=== PATIENT | male | born 1995 | race Caucasian/White ===

== ENCOUNTER 2022-09-23 13:51 | Emergency (ER) | payer MEDICAID ==
[~2022-09-23] VITALS: Ht 167.6 cm; Wt 70.0 kg
[2022-09-23 13:55] VITALS: BP 121/66
[2022-09-23] MEDS ORDERED: ACET-2708 MT (16:39)
== END 2022-09-23 16:49 | disposition home or self-care (01) ==
LOC: ER 13:51
DX: B34.9 Viral infection, unspecified (principal)
CPT/HCPCS: 99281; 99282

== ENCOUNTER 2024-01-28 07:57 | Emergency (ER) | payer SELFPAY ==
[~2024-01-28] VITALS: Ht 172.7 cm; Wt 65.0 kg
[~2024-01-28 07:57] MED LIST: ACET-2708 MT
[2024-01-28 08:01] VITALS: O2SAT 99
[2024-01-28 08:46] LABS: GLUCOSE URINE NEGATIVE (NEGATIVE); KETONES URINE NEGATIVE (NEGATIVE)
[2024-01-28 09:23] LABS: CLARITY URINE CLEAR (CLEAR); COLOR URINE YELLOW (YELLOW); SPECIFIC GRAVITY URINE 1.009 (1.005-1.030)
[2024-01-28 09:24] LABS: OCCULT BLOOD URINE NEGATIVE (NEGATIVE); PH URINE 7.5 (4.5-8.0); PROTEIN URINE NEGATIVE (NEGATIVE)
[2024-01-28 09:25] LABS: LEUKOCYTE ESTERASE URINE NEGATIVE (NEGATIVE); NITRITE URINE NEGATIVE (NEGATIVE); UROBILINOGEN URINE 0.2 E.U./dL (0.2-1.0)
[2024-01-28 10:37] VITALS: BP 109/62; PULSE 56; RESP 18; TEMP 98.2
[2024-01-30 04:08] LABS: CHLAMYDIA TRACHOMATIS NAA Negative (Negative); NEISSERIA GONORRHOEAE NAA Negative (Negative)
== END 2024-01-28 10:39 | disposition home or self-care (01) ==
LOC: ER 07:57
DX: N43.2 Other hydrocele (principal); N50.811 Right testicular pain
CPT/HCPCS: 76870; 81003; 87491; 87591; 93976; 99284

== ENCOUNTER 2024-11-05 09:47 | Emergency (ER) | payer MEDICAID ==
[~2024-11-05] VITALS: Ht 175.3 cm; Wt 65.0 kg
[2024-11-05 09:54] VITALS: PULSE 79; RESP 18; O2SAT 99
[2024-11-05 10:02] VITALS: BP 118/64; TEMP 36.9; O2SAT 97
[2024-11-05] MEDS ORDERED: CYCL5TAB3 MT (10:26)
[2024-11-05] MEDS ORDERED: IBUP-2030 MT (10:26)
== END 2024-11-05 10:46 | disposition home or self-care (01) ==
LOC: ER 09:47
DX: M62.838 Other muscle spasm (principal)
CPT/HCPCS: 99283